=== PATIENT | male | born 1980 | race Caucasian/White ===

== ENCOUNTER → 2020-10-13 | Outpatient (CLI) | payer OTHER | LOC: EMI 10-06 10:00 | DX: G35 Multiple sclerosis (principal); J32.0 Chronic maxillary sinusitis | CPT/HCPCS: 70553; A9577 ==

== ENCOUNTER 2021-07-01 09:55 | Emergency (ER) | payer OTHER ==
[2021-07-01 11:02] LABS: HEMOGLOBIN 16.7 gm/dl (14.0-17.5); RED BLOOD COUNT 5.24 M/UL (4.20-5.50); WHITE BLOOD COUNT 7.8 K/UL (4.5-11.0)
[2021-07-01 11:20] LABS: BUN/CREATININE RATIO 13 (0-10)
[2021-07-01] MEDS ORDERED: LOPRESSOR 25 MG25 MG PO (11:48)
== END 2021-07-01 12:32 | disposition home or self-care (01) ==
LOC: ER1 09:55
PROVIDERS: Emergency Medicine
DX: R74.8 Abnormal levels of other serum enzymes (principal)
CPT/HCPCS: 80053; 81001; 83690; 85025; 99284